=== PATIENT | male | born 1970 | race Hispanic/Latino ===

== ENCOUNTER 2020-05-23 11:24 | Emergency (ER) | payer OTHER ==
[~2020-05-23] VITALS: Ht 180.3 cm; Wt 86.2 kg
[2020-05-23] MEDS ORDERED: AZITHROMYCIN 250 MG TAB PO ONE (13:00)
[2020-05-23] MEDS ORDERED: ACETAMINOPHEN/CODEINE 300MG - 30MG TAB PO ONE (13:00)
[2020-05-23] MEDS ORDERED: TYLENOL # 31 EA PO (14:20)
[2020-05-23 14:41] VITALS: BP 104/71
== END 2020-05-23 15:10 | disposition home or self-care (01) ==
LOC: ER 11:57
DX: U07.1 COVID-19 (principal); R50.9 Fever, unspecified; R05 Cough
CPT/HCPCS: 71045; 99283